=== PATIENT | male | born 1940 | race Caucasian/White ===

== ENCOUNTER 2020-06-03 14:28 | Inpatient (IN) ==
[2020-06-03 16:27] LABS: Eosinophils % 0.1 % (0.00-10.9); Hematocrit 33.7 VOL% (42.0-52.0); Hemoglobin 10.9 GM/DL (14.0-18.0); Immature Granulocytes % 0.6 %; Immature Granulocytes Absolute 0.05 #; Lymphocytes # 1.6 10*3/uL (1.4-4.0); Lymphocytes % 18.4 % (21.2-54.2); Mean Corpuscular HGB Conc 32.3 GM/DL (32-36); Mean Corpuscular Volume 82.2 FL (87-102); Mean Platelet Volume 10.6 FL (9.6-12.0); Monocytes % 9.8 % (1.7-12.7); Neutrophils % 71.1 % (38.7-73.9); Platelet Count 225 T/CUMM (130-400); Red Cell Distribution Width 16.7 % (9.3-17.3); White Blood Count 8.8 T/CUMM (4-12)
[2020-06-03 16:56] LABS: Albumin 3.2 G/DL (3.4-5.0); Bilirubin,Total 1.2 MG/DL (0.2-1.0); Calcium 8.5 MG/DL (8.5-10.1); Osmolality,Calculated 268.5 MOS/KG (273-304); Potassium 3.2 MMOL/L (3.5-5.1); Total Protein 6.7 G/DL (6.4-8.3)
[2020-06-03 17:04] LABS: Ferritin 121.9 ng/ml (26-388)
[2020-06-03] MEDS ORDERED: DEXAMETHASONE 4 MG/1 ML VIAL IV STA (17:27)
[2020-06-03] MEDS ORDERED: cefTRIAXone 1,000 MG in SODIUM CHLORIDE 0.9% 100 ML IV STA (17:27)
[2020-06-03] MEDS ORDERED: ONDANSETRON 4 MG/2 ML VIAL IV PRN (17:53)
[2020-06-03] MEDS ORDERED: ACETAMINOPHEN 325 MG TABLET PO PRN (17:53)
[2020-06-03] MEDS: SODIUM CHLORIDE 0.9% 1,000 ML IV SCH (18:44)
[2020-06-03] MEDS: DOCUSATE SODIUM 100 MG CAPSULE PO SCH (21:00)
[2020-06-04 05:40] LABS: Basophils % 0.2 % (0.0-0.8); Hematocrit 36.7 VOL% (42.0-52.0); Hemoglobin 11.3 GM/DL (14.0-18.0); Immature Granulocytes % 0.8 %; Immature Granulocytes Absolute 0.04 #; Lymphocytes # 1.2 10*3/uL (1.4-4.0); Lymphocytes % 22.5 % (21.2-54.2); Mean Corpuscular HGB Conc 30.8 GM/DL (32-36); Mean Corpuscular Volume 85.7 FL (87-102); Mean Platelet Volume 10.9 FL (9.6-12.0); Monocytes % 7.3 % (1.7-12.7); Neutrophils % 69.2 % (38.7-73.9); Platelet Count 239 T/CUMM (130-400); Red Blood Count 4.28 MC/CUMM (3.8-5.5); Red Cell Distribution Width 16.9 % (9.3-17.3); White Blood Count 5.2 T/CUMM (4-12)
[2020-06-04 06:00] LABS: Albumin 2.7 G/DL (3.4-5.0); Bilirubin,Total 0.5 MG/DL (0.2-1.0); Calcium 8.9 MG/DL (8.5-10.1); Osmolality,Calculated 280.8 MOS/KG (273-304); Potassium 3.9 MMOL/L (3.5-5.1); Total Protein 7.2 G/DL (6.4-8.3)
[2020-06-04 06:01] LABS: Atypical Lymphocytes Few; Lymphocytes 18 % (20-55); Segmented Neutrophils 79 % (50-85); Total Cells Counted 100
[2020-06-04 06:02] LABS: Hypochromasia 1+; Microcytosis 1+; Ovalocytes Slight
[2020-06-04 06:03] LABS: Platelet Estimate Normal
[2020-06-04] MEDS: SODIUM CHLORIDE 0.9% 1,000 ML IV SCH ×2 (06:25→16:13)
[2020-06-04] MEDS: METOPROLOL SUCCINATE XL 50 MG TABLET PO SCH (08:27)
[2020-06-04] MEDS: ASPIRIN EC 81 MG TABLET PO SCH (08:28)
[2020-06-04] MEDS: TAMSULOSIN 0.4 MG CAPSULE PO SCH (08:28)
[2020-06-04] MEDS: ATORVASTATIN 10 MG TABLET PO SCH (08:28)
[2020-06-04] MEDS: CHLORTHALIDONE 25 MG TABLET PO SCH (08:28)
[2020-06-04] MEDS: DOCUSATE SODIUM 100 MG CAPSULE PO SCH ×2 (08:29→20:37)
[2020-06-04] MEDS: PANTOPRAZOLE 40 MG TABLET PO SCH (08:29)
[2020-06-04] MEDS ORDERED: PANTOPRAZOLE 40 MG TABLET PO SCH (09:00)
[2020-06-04] MEDS ORDERED: REMDESIVIR 200 MG in SODIUM CHLORIDE 0.9% 210 ML IV ONE ×2 (09:00→14:45)
[2020-06-05] MEDS: SODIUM CHLORIDE 0.9% 1,000 ML IV SCH ×2 (05:56→18:15)
[2020-06-05] MEDS: CHLORTHALIDONE 25 MG TABLET PO SCH (10:46)
[2020-06-05] MEDS: REMDESIVIR 100 MG in SODIUM CHLORIDE 0.9% 100 ML IV SCH (10:46)
[2020-06-05] MEDS: ASPIRIN EC 81 MG TABLET PO SCH (10:47)
[2020-06-05] MEDS: ATORVASTATIN 10 MG TABLET PO SCH (10:48)
[2020-06-05] MEDS: DOCUSATE SODIUM 100 MG CAPSULE PO SCH ×2 (10:48→20:38)
[2020-06-05] MEDS: TAMSULOSIN 0.4 MG CAPSULE PO SCH (10:48)
[2020-06-05] MEDS: PANTOPRAZOLE 40 MG TABLET PO SCH (10:48)
[2020-06-05] MEDS: METOPROLOL SUCCINATE XL 50 MG TABLET PO SCH (10:48)
[2020-06-05] MEDS: ENOXAPARIN 40 MG/0.4 ML SYRINGE SUBCUT SCH (10:48)
[2020-06-06] MEDS: SODIUM CHLORIDE 0.9% 1,000 ML IV SCH (06:00)
[2020-06-06] MEDS ORDERED: BISACODYL 5 MG TABLET PO PRN (07:19)
[2020-06-06] MEDS: ATORVASTATIN 10 MG TABLET PO SCH (08:43)
[2020-06-06] MEDS: REMDESIVIR 100 MG in SODIUM CHLORIDE 0.9% 100 ML IV SCH (08:43)
[2020-06-06] MEDS: ENOXAPARIN 40 MG/0.4 ML SYRINGE SUBCUT SCH (08:43)
[2020-06-06] MEDS: TAMSULOSIN 0.4 MG CAPSULE PO SCH (08:43)
[2020-06-06] MEDS: ASPIRIN EC 81 MG TABLET PO SCH (08:43)
[2020-06-06] MEDS: CHLORTHALIDONE 25 MG TABLET PO SCH (08:43)
[2020-06-06] MEDS: DOCUSATE SODIUM 100 MG CAPSULE PO SCH ×2 (08:43→21:55)
[2020-06-06] MEDS: METOPROLOL SUCCINATE XL 50 MG TABLET PO SCH (08:43)
[2020-06-06] MEDS: PANTOPRAZOLE 40 MG TABLET PO SCH (08:43)
[2020-06-07] MEDS: CHLORTHALIDONE 25 MG TABLET PO SCH (10:02)
[2020-06-07] MEDS: PANTOPRAZOLE 40 MG TABLET PO SCH (10:02)
[2020-06-07] MEDS: ATORVASTATIN 10 MG TABLET PO SCH (10:02)
[2020-06-07] MEDS: REMDESIVIR 100 MG in SODIUM CHLORIDE 0.9% 100 ML IV SCH (10:02)
[2020-06-07] MEDS: ASPIRIN EC 81 MG TABLET PO SCH (10:02)
[2020-06-07] MEDS: ENOXAPARIN 40 MG/0.4 ML SYRINGE SUBCUT SCH (10:02)
[2020-06-07] MEDS: METOPROLOL SUCCINATE XL 50 MG TABLET PO SCH (10:02)
[2020-06-07] MEDS: TAMSULOSIN 0.4 MG CAPSULE PO SCH (10:02)
[2020-06-07] MEDS: DOCUSATE SODIUM 100 MG CAPSULE PO SCH ×2 (10:02→20:44)
[2020-06-08 05:38] LABS: Basophils % 0.1 % (0.0-0.8); Eosinophils # 0.2 10*3/uL (0.0-0.87); Eosinophils % 1.7 % (0.00-10.9); Immature Granulocytes % 1.2 %; Immature Granulocytes Absolute 0.14 #; Lymphocytes # 1.8 10*3/uL (1.4-4.0); Lymphocytes % 15.1 % (21.2-54.2); Mean Corpuscular HGB Conc 32.4 GM/DL (32-36); Mean Corpuscular Volume 83.3 FL (87-102); Mean Platelet Volume 10.1 FL (9.6-12.0); Monocytes % 9.8 % (1.7-12.7); Neutrophils % 72.1 % (38.7-73.9); Platelet Count 257 T/CUMM (130-400); Red Blood Count 4.08 MC/CUMM (3.8-5.5); Red Cell Distribution Width 16.9 % (9.3-17.3); White Blood Count 11.7 T/CUMM (4-12)
[2020-06-08 06:16] LABS: Albumin 2.5 G/DL (3.4-5.0); Bilirubin,Total 0.8 MG/DL (0.2-1.0); Calcium 8.4 MG/DL (8.5-10.1); Osmolality,Calculated 268.4 MOS/KG (273-304); Total Protein 6.3 G/DL (6.4-8.3)
[2020-06-08] MEDS: ASPIRIN EC 81 MG TABLET PO SCH (09:30)
[2020-06-08] MEDS: TAMSULOSIN 0.4 MG CAPSULE PO SCH (09:30)
[2020-06-08] MEDS: ATORVASTATIN 10 MG TABLET PO SCH (09:30)
[2020-06-08] MEDS: METOPROLOL SUCCINATE XL 50 MG TABLET PO SCH (09:30)
[2020-06-08] MEDS: CHLORTHALIDONE 25 MG TABLET PO SCH (09:30)
[2020-06-08] MEDS: REMDESIVIR 100 MG in SODIUM CHLORIDE 0.9% 100 ML IV SCH (09:30)
[2020-06-08] MEDS: PANTOPRAZOLE 40 MG TABLET PO SCH (09:30)
[2020-06-08] MEDS: DOCUSATE SODIUM 100 MG CAPSULE PO SCH ×2 (09:30→21:36)
[2020-06-08] MEDS: ENOXAPARIN 40 MG/0.4 ML SYRINGE SUBCUT SCH (09:30)
[2020-06-08] MEDS: POTASSIUM CHLORIDE 20 MEQ TABLET PO PRN ×4 (10:56→17:22)
[2020-06-09 05:29] LABS: Basophils % 0.1 % (0.0-0.8); Eosinophils # 0.2 10*3/uL (0.0-0.87); Eosinophils % 1.3 % (0.00-10.9); Immature Granulocytes % 1.1 %; Immature Granulocytes Absolute 0.13 #; Lymphocytes # 1.6 10*3/uL (1.4-4.0); Lymphocytes % 14.1 % (21.2-54.2); Mean Corpuscular HGB Conc 30.6 GM/DL (32-36); Mean Corpuscular Volume 86.7 FL (87-102); Mean Platelet Volume 10.4 FL (9.6-12.0); Monocytes % 12.8 % (1.7-12.7); Neutrophils % 70.6 % (38.7-73.9); Platelet Count 269 T/CUMM (130-400); Red Blood Count 4.15 MC/CUMM (3.8-5.5); Red Cell Distribution Width 16.8 % (9.3-17.3); White Blood Count 11.4 T/CUMM (4-12)
[2020-06-09 05:54] LABS: Calcium 8.4 MG/DL (8.5-10.1); Osmolality,Calculated 262.8 MOS/KG (273-304); Potassium 3.4 MMOL/L (3.5-5.1)
[2020-06-09 06:23] LABS: Hypochromasia 1+; Microcytosis 1+; Ovalocytes Slight; Polychromasia Slight
[2020-06-09 06:24] LABS: Platelet Estimate Normal; Spherocytes Slight
[2020-06-09] MEDS: TAMSULOSIN 0.4 MG CAPSULE PO SCH (08:02)
[2020-06-09] MEDS: ATORVASTATIN 10 MG TABLET PO SCH (08:02)
[2020-06-09] MEDS: DOCUSATE SODIUM 100 MG CAPSULE PO SCH ×2 (08:02→20:40)
[2020-06-09] MEDS: POTASSIUM CHLORIDE 20 MEQ TABLET PO PRN ×3 (08:02→14:18)
[2020-06-09] MEDS: ASPIRIN EC 81 MG TABLET PO SCH (08:02)
[2020-06-09] MEDS: PANTOPRAZOLE 40 MG TABLET PO SCH (08:03)
[2020-06-09] MEDS: METOPROLOL SUCCINATE XL 50 MG TABLET PO SCH (08:03)
[2020-06-09] MEDS: CHLORTHALIDONE 25 MG TABLET PO SCH (08:03)
[2020-06-09] MEDS: ENOXAPARIN 40 MG/0.4 ML SYRINGE SUBCUT SCH (08:04)
[2020-06-09] MEDS: predniSONE 10 MG TABLET PO SCH (12:31)
[2020-06-10] MEDS: ATORVASTATIN 10 MG TABLET PO SCH (08:57)
[2020-06-10] MEDS: TAMSULOSIN 0.4 MG CAPSULE PO SCH (08:57)
[2020-06-10] MEDS: METOPROLOL SUCCINATE XL 50 MG TABLET PO SCH (08:57)
[2020-06-10] MEDS: DOCUSATE SODIUM 100 MG CAPSULE PO SCH ×2 (08:57→21:24)
[2020-06-10] MEDS: ENOXAPARIN 40 MG/0.4 ML SYRINGE SUBCUT SCH (08:57)
[2020-06-10] MEDS: predniSONE 10 MG TABLET PO SCH (08:58)
[2020-06-10] MEDS: PANTOPRAZOLE 40 MG TABLET PO SCH (08:58)
[2020-06-10] MEDS: ASPIRIN EC 81 MG TABLET PO SCH (08:58)
[2020-06-10] MEDS: CHLORTHALIDONE 25 MG TABLET PO SCH (08:58)
[2020-06-11] MEDS: ASPIRIN EC 81 MG TABLET PO SCH (09:25)
[2020-06-11] MEDS: CHLORTHALIDONE 25 MG TABLET PO SCH (09:25)
[2020-06-11] MEDS: METOPROLOL SUCCINATE XL 50 MG TABLET PO SCH (09:25)
[2020-06-11] MEDS: ENOXAPARIN 40 MG/0.4 ML SYRINGE SUBCUT SCH (09:25)
[2020-06-11] MEDS: ATORVASTATIN 10 MG TABLET PO SCH (09:25)
[2020-06-11] MEDS: PANTOPRAZOLE 40 MG TABLET PO SCH (09:25)
[2020-06-11] MEDS: DOCUSATE SODIUM 100 MG CAPSULE PO SCH (09:25)
[2020-06-11] MEDS: TAMSULOSIN 0.4 MG CAPSULE PO SCH (09:25)
[2020-06-11] MEDS: predniSONE 10 MG TABLET PO SCH (09:27)
[2020-06-11 15:45] VITALS: BP 112/72
== END 2020-06-11 16:30 | disposition home or self-care (01) | DRG 177 ==
LOC: N.ED 14:28 → N.EDINP 17:53 → N.2E 19:36
PROVIDERS: ADMIT Family Medicine; ATTEND Family Medicine

== ENCOUNTER 2021-05-23 10:25 | Inpatient (IN) ==
[2021-05-23 11:12] LABS: Basophils % 0.1 % (0.0-0.8); Eosinophils % 0.3 % (0.00-10.9); Hematocrit 24.2 VOL% (42.0-52.0); Hemoglobin 7.2 GM/DL (14.0-18.0); Immature Granulocytes % 0.3 %; Immature Granulocytes Absolute 0.03 #; Lymphocytes # 1.7 10*3/uL (1.4-4.0); Lymphocytes % 19.1 % (21.2-54.2); Mean Corpuscular HGB Conc 29.8 GM/DL (32-36); Mean Corpuscular Volume 85.2 FL (87-102); Mean Platelet Volume 10.5 FL (9.6-12.0); Monocytes % 11.4 % (1.7-12.7); Neutrophils % 68.8 % (38.7-73.9); Platelet Count 254 T/CUMM (130-400); Red Blood Count 2.84 MC/CUMM (3.8-5.5); Red Cell Distribution Width 15.8 % (9.3-17.3); White Blood Count 9.1 T/CUMM (4-12)
[2021-05-23 11:24] LABS: Partial Thromboplastin Time 22.4 SECS (23.8-32.1)
[2021-05-23 11:27] LABS: Albumin 3.7 G/DL (3.4-5.0); Bilirubin,Total 0.6 MG/DL (0.20-1.00); Calcium 9.2 MG/DL (8.5-10.1); Osmolality,Calculated 282.5 MOS/KG (273-304); Potassium 3.5 MMOL/L (3.5-5.1); Total Protein 7.1 G/DL (6.4-8.2)
[2021-05-23] MEDS ORDERED: ONDANSETRON 4 MG/2 ML VIAL IV PRN (14:22)
[2021-05-23] MEDS ORDERED: ACETAMINOPHEN 325 MG TABLET PO PRN (14:22)
[2021-05-23] MEDS ORDERED: SODIUM CHLORIDE 0.9% 1,000 ML IV PRN (16:37)
[2021-05-23] MEDS: SODIUM CHLORIDE 0.9% 1,000 ML IV SCH (17:14)
[2021-05-23 17:21] LABS: Hematocrit 21.5 VOL% (42.0-52.0)
[2021-05-23 17:31] LABS: PT Patient Result 11.4 SECS (10.5-12.0); Partial Thromboplastin Time 23.1 SECS (23.8-32.1)
[2021-05-23 17:32] LABS: Hemoglobin 6.3 GM/DL (14.0-18.0)
[2021-05-23] MEDS: DOCUSATE SODIUM 100 MG CAPSULE PO SCH (20:40)
[2021-05-23] MEDS: PANTOPRAZOLE 40 MG VIAL IV SCH (20:42)
[2021-05-24] MEDS ORDERED: PANTOPRAZOLE 40 MG TABLET PO SCH (06:30)
[2021-05-24 06:44] LABS: Basophils % 0.3 % (0.0-0.8); Eosinophils # 0.1 10*3/uL (0.0-0.87); Eosinophils % 1.6 % (0.00-10.9); Hematocrit 27.1 VOL% (42.0-52.0); Immature Granulocytes % 0.4 %; Immature Granulocytes Absolute 0.03 #; Lymphocytes # 1.9 10*3/uL (1.4-4.0); Lymphocytes % 25.3 % (21.2-54.2); Mean Corpuscular HGB Conc 30.3 GM/DL (32-36); Mean Corpuscular Volume 87.4 FL (87-102); Mean Platelet Volume 10.6 FL (9.6-12.0); Monocytes % 11.8 % (1.7-12.7); Neutrophils % 60.6 % (38.7-73.9); Platelet Count 203 T/CUMM (130-400); Red Cell Distribution Width 15.4 % (9.3-17.3); White Blood Count 7.3 T/CUMM (4-12)
[2021-05-24 06:47] LABS: Hemoglobin 8.2 GM/DL (14.0-18.0)
[2021-05-24] MEDS: DOCUSATE SODIUM 100 MG CAPSULE PO SCH ×2 (09:04→20:55)
[2021-05-24] MEDS: MULTIVITAMIN (CENTRUM) TABLET PO SCH (09:04)
[2021-05-24] MEDS: TAMSULOSIN 0.4 MG CAPSULE PO SCH (09:04)
[2021-05-24] MEDS ORDERED: LACTATED RINGERS 1,000 ML IV SCH (11:00)
[2021-05-24] MEDS: PANTOPRAZOLE 40 MG VIAL IV SCH ×2 (11:04→20:55)
[2021-05-24] MEDS ORDERED: ETOMIDATE 20 MG/10 ML VIAL IV ONE (11:25)
[2021-05-24] MEDS ORDERED: propofoL 200 MG/20 ML VIAL IV ONE (11:25)
[2021-05-24] MEDS ORDERED: LIDOCAINE 2% 5 ML VIAL ONE (11:25)
[2021-05-24] MEDS: SODIUM CHLORIDE 0.9% 1,000 ML IV SCH ×4 (11:35→23:19)
[2021-05-24 13:19] LABS: Hematocrit 30.8 VOL% (42.0-52.0); Hemoglobin 9.4 GM/DL (14.0-18.0)
[2021-05-24] MEDS ORDERED: ATORVASTATIN 10 MG TABLET PO SCH (21:00)
[2021-05-24 23:18] LABS: % Iron Saturation 4.2 % (18-50); Ferritin 8.2 ng/mL (26-388)
[2021-05-25] MEDS: MULTIVITAMIN (CENTRUM) TABLET PO SCH (10:45)
[2021-05-25] MEDS: PANTOPRAZOLE 40 MG VIAL IV SCH (10:45)
[2021-05-25] MEDS: DOCUSATE SODIUM 100 MG CAPSULE PO SCH (10:45)
[2021-05-25] MEDS: TAMSULOSIN 0.4 MG CAPSULE PO SCH (10:46)
[2021-05-25 11:55] VITALS: BP 116/65
[2021-06-10] MEDS ORDERED: POLYETHYLENE GLYCOL POWDER 255 GM BOTTLE PO ONE (17:00)
[2021-06-11] MEDS ORDERED: POLYETHYLENE GLYCOL POWDER 255 GM BOTTLE PO ONE (05:00)
== END 2021-05-25 13:16 | disposition home or self-care (01) | DRG 377 ==
LOC: N.ED 10:25 → N.EDINP 13:51 → N.5E 14:10
PROVIDERS: ADMIT Family Medicine; ATTEND Family Medicine